=== PATIENT | female | born 1950 | race Caucasian/White ===

== ENCOUNTER → 2021-12-03 14:26 | Outpatient (CLI) | payer MEDICARE, SELFPAY ==
--- NOTE | ~2021-12-03 | XR_ITS ---
XR knee LT 3V 12/03/2021 14:45 Indication: Left knee pain Procedure: 3 views left knee Comparison: No prior studies for comparison. Findings: No fracture, subluxation or dislocation. No significant soft tissue abnormality. No foreign body. There is mild osteoarthritis. Impression: 1: Mild osteoarthritis of the left knee. Reviewed, dictated and finalized at location B. Impression: 1: Mild osteoarthritis of the left knee.
== END ==
PROVIDERS: PCP Family Medicine; Visit Provider Family Medicine
DX: M17.12 Unilateral primary osteoarthritis, left knee (principal)
CPT/HCPCS: 73562

== ENCOUNTER → 2022-02-12 13:57 | Outpatient (CLI) | payer MEDICARE, SELFPAY ==
--- NOTE | ~2022-02-12 | XR_ITS ---
EXAMINATION: XR chest 2V 02/12/2022 14:21 INDICATION: Unspecified lower respiratory infection PROCEDURE: 2 view chest COMPARISON: No prior studies for comparison. FINDINGS: The lungs are clear. The cardiomediastinal silhouette is within normal limits. There are no pleural effusions. There is no pneumothorax suspected. There are median sternotomy wires. There is a prosthetic heart valve. IMPRESSION: 1: NO ACUTE CARDIOPULMONARY DISEASE. Reviewed, dictated and finalized at location A.
== END ==
PROVIDERS: PCP Family Medicine; Visit Provider Physician Assistant
DX: J22 Unspecified acute lower respiratory infection (principal)
CPT/HCPCS: 71046

== ENCOUNTER → 2022-12-09 14:12 | Outpatient (CLI) | payer MEDICARE, SELFPAY ==
--- NOTE | ~2022-12-09 | XR_ITS ---
EXAM: XR sternum min 2V DATE: 12/09/2022 14:29 HISTORY: chest pain;mid sternal chest pain s/p lifting heavy object . COMPARISON: None available. FINDINGS: Intact sternotomy wires. Cardiac valve replacement. No osseous fracture or dislocation. IMPRESSION: No acute osseous finding in the sternum. Reviewed, dictated and finalized at location K.
--- NOTE | ~2022-12-09 | XR_ITS ---
EXAMINATION: XR chest 2V Exam Date/Time: 12/09/2022 14:16 CDT HISTORY: R07.89 - Other chest pain;hx of HTN, parkinson, non smoker Comparison: 02/12/2022. RESULT: Lines, tubes, and devices: Intact sternotomy wires. Cardiac valve replacement. Lungs and pleura: Mild senescent change, otherwise clear. Cardiomediastinal silhouette: Stable. Other: No acute osseous or upper abdominal finding. IMPRESSION: No acute cardiopulmonary process. Reviewed, dictated and finalized at location K.
== END ==
PROVIDERS: PCP Family Medicine; Visit Provider Physician Assistant
DX: R07.89 Other chest pain (principal)
CPT/HCPCS: 71046; 71120

== ENCOUNTER → 2023-03-10 12:51 | Outpatient (CLI) | payer MEDICARE, SELFPAY ==
--- NOTE | ~2023-03-10 | XR_ITS ---
XR shoulder RT min 2V 03/10/2023 13:11 Indication: Right shoulder pain Procedure: 5 views right shoulder Comparison: No prior studies for comparison. Findings: No fracture, subluxation or dislocation. There is anatomic alignment. No significant joint space narrowing. Status post median sternotomy for CABG. Impression: 1: No significant bone or joint abnormality. Reviewed, dictated and finalized at location L. Impression: 1: No significant bone or joint abnormality.
== END ==
PROVIDERS: PCP Family Medicine; Visit Provider Physician Assistant Medical
DX: M25.511 Pain in right shoulder (principal)
CPT/HCPCS: 73030

== ENCOUNTER 2023-12-18 11:41 | Outpatient (CLI) | payer MEDICARE, SELFPAY ==
--- NOTE | ~2023-12-18 | XR_ITS ---
XR lumbar spine 2-3V 12/18/2023 12:55 Indication: Sciatica Procedure: 4 views of the lumbar spine Comparison: No prior studies for comparison. Findings: Vertebral body heights are maintained. There is disc narrowing at all lumbar levels. No fra cture, subluxation or dislocation. There is facet hypertrophy at L4-5 and L5-S1. No evidence for spon dylolisthesis. Mild levoscoliosis. There are cholecystectomy clips. Impression: 1: Severe lumbar spondylosis. Reviewed, dictated and finalized at location B. Impression: 1: Severe lumbar spondylosis.
== END 2023-12-18 11:42 ==
PROVIDERS: PCP Family Medicine; Visit Provider Physician Assistant Medical
DX: M43.06 Spondylolysis, lumbar region (principal); M54.30 Sciatica, unspecified side
CPT/HCPCS: 72100

== ENCOUNTER 2024-10-04 08:30 | Outpatient (CLI) | payer MEDICARE, SELFPAY ==
--- NOTE | ~2024-10-04 | XR_ITS ---
EXAMINATION: XR shoulder LT min 2V DATE: 10/04/2024 08:50 INDICATION: Left rotator cuff tear or rupture. TECHNIQUE: AP internally and externally rotated, AP oblique externally rotated and transscapular Y vi ews of the left shoulder were obtained. COMPARISON: None FINDINGS: Normal alignment. No fracture. The acromion undersurface is curved in morphology (type II) with smal l anterior subacromial spur. Mild glenohumeral osteoarthritis. Moderate acromioclavicular osteoarthri tis. Visualized portions of the mid to upper lungs are clear. Median sternotomy wires and mediastinal surgical clips are seen, likely from prior coronary artery bypass grafting. Soft tissues are unremar kable. IMPRESSION: Mild left glenohumeral and moderate acromioclavicular osteoarthritis. Reviewed, dictated and finalized at location B.
--- NOTE | ~2024-10-04 | XR_ITS ---
EXAMINATION: XR shoulder RT min 2V DATE: 10/04/2024 08:50 INDICATION: Right shoulder pain TECHNIQUE: AP internally and externally rotated, AP oblique externally rotated and transscapular Y vi ews of the right shoulder were obtained. COMPARISON: None FINDINGS: Normal alignment. No fracture.The acromion undersurface is curved in morphology (type II) small ante rior subacromial spur. Mild glenohumeral and moderate acromioclavicular osteoarthritis. Visualized up per lungs are clear. Median sternotomy wires and mediastinal surgical clips are seen, likely from tisha or coronary artery bypass grafting. Soft tissues are unremarkable. IMPRESSION: Likely humeral and moderate acromioclavicular osteoarthritis. Reviewed, dictated and finalized at location B. EL SUPERVISOR
== END 2024-10-04 08:31 | disposition home or self-care (01) ==
PROVIDERS: PCP Family Medicine; Visit Provider Orthopaedic Surgery
DX: M75.102 Unspecified rotator cuff tear or rupture of left shoulder, not specified as traumatic (principal); M12.812 Other specific arthropathies, not elsewhere classified, left shoulder
CPT/HCPCS: 73030

== ENCOUNTER 2024-12-30 09:57 | Outpatient (CLI) | payer MEDICARE, SELFPAY ==
--- NOTE | ~2024-12-30 | MR_ITS ---
MRI of the left shoulder Technique: Axial proton-density fat-sat images, coronal proton density fat-sat and T2 fat-sat images, and sagittal T1-weighted and T2 fat-sat images were acquired. Clinical History: Rotator cuff tear Findings: There is minimal AC joint degenerative change. Coracoclavicular, coracoacromial, and coraco humeral ligaments appear intact. There is full-thickness tearing at the anterior, distal supraspinatus tendon insertion, region measur ing 1.1 x 0.8 cm in extent. There is moderate to advanced supraspinatus and infraspinatus tendinosis. Subscapularis tendon is intact. Tendon of the long head of the biceps is intact. No labral tear evident. There is prominent fluid distention of the subacromial/subdeltoid bursa. Inferior glenohumeral joint is intact. No degenerative change or effusion of the glenohumeral joint. No muscle atrophy or edema. Impression: 1.1 x 0.7 cm full-thickness tear at the anterior, distal supraspinatus tendon insertion. Background r otator cuff tendinosis. Subacromial/subdeltoid bursitis. Reviewed, dictated and finalized at location . Impression: 1.1 x 0.7 cm full-thickness tear at the anterior, distal supraspinatus tendon i nsertion. Background rotator cuff tendinosis. Subacromial/subdeltoid bursitis.
--- NOTE | ~2024-12-30 | MR_ITS ---
MRI of the right shoulder Technique: Axial proton-density fat-sat images, coronal proton density fat-sat and T2 fat-sat images, and sagittal T1-weighted and T2 fat-sat images were acquired. Clinical History: Rotator cuff tear Findings: There is minimal AC joint degenerative change. Coracoclavicular, coracoacromial, and coraco humeral ligaments are intact. There is severe supraspinatus and infraspinatus tendinosis, without partial or full-thickness tear ev ident. Subscapularis tendon is intact, with mild tendinosis. Tendon of long head of the biceps is int act. No definite labral tear seen. Inferior glenohumeral ligament is intact. There is probable fluid distention of the subacromial/subde ltoid bursa. No glenohumeral joint effusion. No muscle/edema. Impression: Subacromial/subdeltoid bursitis. Severe rotator cuff tendinosis, as detailed above. Reviewed, dictated and finalized at [facility]. Impression: Subacromial/subdeltoid bursitis. Severe rotator cuff tendinosis, as detailed above.
== END 2024-12-30 09:58 | disposition home or self-care (01) ==
PROVIDERS: PCP Family Medicine; Visit Provider Orthopaedic Surgery
DX: M75.52 Bursitis of left shoulder (principal); M75.101 Unspecified rotator cuff tear or rupture of right shoulder, not specified as traumatic; M75.102 Unspecified rotator cuff tear or rupture of left shoulder, not specified as traumatic
CPT/HCPCS: 73221

== ENCOUNTER 2025-03-31 09:53 | Outpatient (CLI) | payer MEDICARE, SELFPAY ==
--- OUTSIDE RECORDS SUMMARY | 2025-03-31 10:02 | XMS_ITS | Clinical Summary ---
Author Organization [facility] Address [address] [place] [address] Care Team Providers Care Zoning Engineer Name Role Phone Ileana Herrera MD Primary Care Provider [phone] Allergies Active Allergy Reactions Criticality Noted Date Comments Ljnhjpg-Kmt-Uzx Reductase Inhibitors Muscle pain Medium 03/08/2024 Medications acetaminophen (TYLENOL) 325 mg tablet take 1 tablet by oral route every 4 hours as needed 0 0 03/28/2015 Active aspirin 81 mg tablet Take 1 tablet (81 mg total) by mouth daily Active carbidopa-levod opa (SINEMET) 25-100 mg per tablet Take 1 tablet by mouth 3 (three) times a day 10/30/2018 Active traMADol (ULTRAM) 50 mg tablet Take 1 tablet (50 mg total) by mouth every 8 (eight) hours as needed for pain Active coenzyme Q10 10 mg capsule Take 1 capsule (10 mg total) by mouth daily Active cetirizine (ZyrTEC) 10 mg tablet Take 1 tablet (10 mg total) by mouth daily Active atorvastatin (LIPITOR) 10 mg tablet TAKE 1 TABLET BY MOUTH EVERY OTHER DAY 45 tablet 2 02/21/2025 Active Active Problems Problem Noted Date Diagnosed Date LVH (left ventricular hypertrophy) 08/20/2022 Mixed hyperlipidemia 08/07/2021 Statin myopathy 06/11/2020 Parkinson's disease (CMS/HCC) 06/02/2019 Muscle pain 10/19/2017 S/P aortic valve replacement with bioprosthetic valve 07/10/2017 Essential hypertension 07/10/2017 Aortic valve stenosis 03/17/2017 Ascending aortic aneurysm 03/17/2017 Aortic root dilatation 06/04/2016 Overview (12/25/2016): Aortic root dilatation Family history of cardiovascular disease 015 Overview (12/25/2016): Family history of bicuspid aortic valve Dyspnea on exertion 03/28/2015 Overview (12/25/2016): [place]BORNE (dyspnea on exertion) Resolved Problems Problem Noted Date Diagnosed Date Resolved Date Dyslipidemia 03/28/2015 08/07/2021 Overview (12/25/2016): Dyslipidemia Surgical History Surgery Date Site/Laterality Comments FOOT SURGERY 09/21/1972 - 09/20/1973 CHOLECYSTECTOMY 09/21/2006 - 09/20/2007 APPENDECTOMY 09/21/2008 - 09/20/2009 AORTIC VALVE REPLACEMENT 09/21/2016 - 09/20/2017 CATARACT EXTRACTION, BILATERAL 01/19/2023 - 02/18/2023 Bi lateral Medical History Medical History Date Comments Hypertension Aortic stenosis Hyperlipidemia Aortic aneurysm Family History Medical History Relation Name Comments Colon cancer Father Cancer, colon; Dementia Mother Dementia; Relation Name Status Comments Father Mother Social History Tobacco Use Types Packs/Day Years Used Date Smoking Tobacco: Never Smokeless Tobacco: Never Tobacco Cessation:Counseling Given: Not Answered Alcohol Use Standard Drinks/Week Comments Yes 0 (1 standard drink = 0.6 oz pur e alcohol) Comments Unknown Sex and Gender Information Value Date Recorded Sex Assigned at Not on file Legal Sex Female 2:09 PM CDT Gender Identity Not on file Sexual Orientation Not on file Obstetrics History Last Filed Vital Signs Vital Sign Reading Time Taken Comments Blood Pressure 134/84 10/25/2024 2:25 PM DIRECTOR OF FOOD AND BEVERAGE SERVICES Pulse 82 10/25/2024 2:25 PM DIRECTOR OF FOOD AND BEVERAGE SERVICES Temperature 36.7 C (98 F) 08/21/2020 12:03 PM DIRECTOR OF FOOD AND BEVERAGE SERVICES Respiratory Rate 16 08/30/2024 10:43 AM DIRECTOR OF FOOD AND BEVERAGE SERVICES Oxygen Saturation 98% 10/25/2024 2:25 PM DIRECTOR OF FOOD AND BEVERAGE SERVICES Inhaled Oxygen Concentration - - Weight 82.1 kg (181 lb) 10/25/2024 2:25 PM DIRECTOR OF FOOD AND BEVERAGE SERVICES Height 172.7 cm (5' 8) 10/25/2024 2:25 PM DIRECTOR OF FOOD AND BEVERAGE SERVICES Body Mass Index 27.52 10/25/2024 2:25 PM DIRECTOR OF FOOD AND BEVERAGE SERVICES Plan of Treatment Health Maintenance Due Date Last Done Comments Colon Cancer Screening-Colonoscopy 1950 Depression Screening 1950 Fall Risk Assessment 1950 Hepatitis C Screening 1950 Osteoporosis Screening-Bone Density Scan 1949 Hepatitis B Screening 1967 Pneumococcal vaccine 65+ (1 of 1 - PCV) 1999 Zoster Vaccine (1 of 2) 1999 Well Visit 65+ 2014 DTaP/Tdap/Td Vaccine (2 - Td or Tdap) 03/14/2023 Influenza Vaccine (#1) 2025 06/24/2018 Insurance AETNA MEDICARE [facility] MEDICARE AET MEDICARE [facility] MED[facility] Address: [address] [place] [address] Care Teams Zoning Engineer Relationship Specialty Start Date End Date Ileana Herrera MD PCP - General Family Medicine 08/07/21
--- OUTSIDE RECORDS SUMMARY | 2025-03-31 10:02 | XMS_ITS | Referral Summary ---
Author Organization [facility] Address [address] [place] [id number] Care Team Providers Care Fire Management Officer Name Role Phone Ileana Herrera MD Primary Care Provider [phone] Allergies Active Allergy Reactions Criticality Noted Date Comments Khrqjim-Xuv-Gai Reductase Inhibitors Muscle pain Medium 03/08/2024 Medications [...] Date Dyslipidemia 03/28/2015 08/07/2021 Overview (12/25/2016): Dyslipidemia Social History Tobacco Use Types Packs/Day Years [...] on file Sexual Orientation Not on file Last Filed Vital Signs Vital Sign Reading Time Taken Comments Blood Pressure 134/84 10/25/2024 2:25 PM HAND DRAWER IN Pulse 82 10/25/2024 2:25 PM HAND DRAWER IN Temperature 36.7 C (98 F) 08/21/2020 12:03 PM HAND DRAWER IN Respiratory Rate 16 08/30/2024 10:43 AM HAND DRAWER IN Oxygen Saturation 98% 10/25/2024 2:25 PM HAND DRAWER IN Inhaled Oxygen Concentration - - Weight 82.1 kg (181 lb) 10/25/2024 2:25 PM HAND DRAWER IN Height 172.7 cm (5' 8) 10/25/2024 2:25 PM HAND DRAWER IN Body Mass Index 27.52 10/25/2024 2:25 PM HAND DRAWER IN Plan of Treatment Not on file Insurance AETNA MEDICARE MEDICARE MEDICARE Care Teams Fire Management Officer Relationship Specialty Start Date End Date Ileana Herrera MD PCP - General Family Medicine 08/07/21
--- OUTSIDE RECORDS SUMMARY | 2025-03-31 10:02 | XMS_ITS | Encounter Summary ---
Author Organization [facility] Address [address] [facility] [address] [place] [address] Care Team Providers Care Warehouse Specialist Name Role Phone Mikhail Weeks DO Primary Care Provider + [phone] Mikhail Weeks DO Primary Care Provider + [phone] Desirae Yeboah MD Primary Care Provider + [phone] Gilberto Hall Primary Care Provider [phone] Ileana Herrera MD Primary Care Provider [phone] Encounter Details Date Type Department Care Team (Late st Contact Info) Description 12/01/2016 Orders Only [facility] ProviderMay MD [address] [place] [id number] Social History Tobacco Use Types Packs/Day Years Used Date Smoking Tobacco: Never Assessed Comments Unknown Sex and Gender Information Value Date Recorded Sex Assigned at Not on file Legal Sex Female 2:09 PM CDT Gender Identity Not on file Sexual Orientation Not on file documented as of this encounter Plan of Treatment Not on file documented as of this encounter Procedures Procedure Name Priority Date/Time Associated Diagnosis Comments CARDIOLOGY REPORT 12/01/2016 documented in this encounter Results * CARDIOLOGY REPORT (12/01/2016) Anatomical Region Laterality Modality Other Narrative 12/01/2016 Ordered by an unspecified provider. Historical Provider [facility] NETTA BREWER Final Result documented in this encounter Visit Diagnoses Not on filedocumented in this encounter Care Teams Warehouse Specialist Relationship Specialty Start Date End Date Mikhail Weeks DO PCP - General 12/19/16 04/04/18 Mikhail Weeks DO PCP - General 03/26/16 12/18/16 Desirae Yeboah MD PCP - General Family Practice 04/05/18 01/31/21 Gilberto Hall PA [address] [place] [address] PCP - General Physician Garbage Pick Up Worker 02/01/21 08/06/21 Ileana Herrera MD [address] [place] [address] PCP - General Family Medicine 08/07/21 documented as of this encounter
--- NOTE | 2025-03-31 10:15 | ECG_ITS ---
Test Date: 2025-03-31 10:20:19 Measurements Intervals [place] Rate: 67 P: -52 NV: 123 QRS: -41 QRSD: 107 T: -16 QT: 384 QTc: 408 Interpretive Statements ECTOPIC ATRIAL RHYTHM WITH OCCASIONAL SUPRAVENTRICULAR PREMATURE COMPLEXES LEFTWARD AXIS PATTERN CONSISTENT WITH PULMONARY DISEASE INCOMPLETE RIGHT BUNDLE BRANCH BLOCK Electronically Signed On 03-31-2025 11:09:26 CDT by Chandrakant Davis D.O
== END 2025-03-31 09:54 | disposition home or self-care (01) ==
LOC: ANHSURGERY 09:59
PROVIDERS: PCP Family Medicine; Visit Provider Orthopaedic Surgery
DX: E78.5 Hyperlipidemia, unspecified (principal); I45.10 Unspecified right bundle-branch block
CPT/HCPCS: 93005

== ENCOUNTER 2025-04-07 00:20 | Day surgery (SDC) | payer MEDICARE, SELFPAY ==
[2025-03-30 10:57] VITALS: BMI 26.4
--- NOTE | 2025-03-30 11:19 | PC.NURSE ---
Report to the Outpatient Waiting Room, entrance under the green pavilion located off [facility], at time ___10:00AM___ on date ___04/07/25___. Planned Procedure Time: ____12:00PM___.? Time changes happen often and if your time is changed the preop area will call you the afternoon before. - You and your visitor will be asked to self-screen and do not enter if you have any COVID symptoms. Please call surgeon if you need to reschedule. - A mask is optional within the hospital at this time. Patients may have clear liquids (water, carbonated beverages, clear teas, apple juice) until 3 hours prior to surgery (9:00AM) with a maximum of 20 ounces. - No food from midnight until time of surgery and no smoking, or chewing tobacco (or any form of nicotine). No chewing gum, candy or mints. Take only the following medications with a SIP of water on the morning of surgery: ___CARBIDOPA-LEVODOPA. MAY TAKE TRAMADOL NEEDED FOR PAIN. DO NOT STOP ANY OF YOUR OTHER PRESCRIPTION MEDICATIONS PRIOR TO SURGERY EXCEPT THE FOLLOWING Hold all vitamins and supplements for 3 days per anesthesiologist.- LAST DOSE 04/03/25. Medications to discontinue per physician ___HOLD ASPIRIN (EXCEDRIN) AND ALL NSAIDS 7 DAYS PRE-OP PER DR ROCHA Date to take last dose 03/30/25 Please no make-up, nail canadian, hairspray, perfume, deodorant, or body powder the day of surgery.? No jewelry (including any body piercings) or valuables the day of surgery, leave them at home.? Please take a shower or bath the night before, or the morning of, surgery with an antibacterial soap.? Wear comfortable, loose fitting clothing.? - Jewelry must be removed prior to entering the operating room.? Rings and piercings that are not removed may be cut off. - The hospital will not accept responsibility for valuables.? - Please leave all valuables, including medications, at home the day of surgery. If you are going home after surgery, a licensed frontload driver must drive you home.? - NO public transportation without another adult if you receive anesthesia. - We recommend that an adult stay with you for 24 hours following discharge. - We also recommend that you do not drive, make important decision, drink alcoholic beverages, or take any drugs that were not prescribed by your health care provider for at least 24 hours after your discharge time. Follow any additional instructions given to you from your surgeon. Telephone instructions given to ____PATIENT and asked if any additional questions and then verbalized understanding. Patient advised to call surgeon office or pre surgery nurse liaison [phone] if any additional questions.
[2025-04-07] VITALS (8 sets, daily range): BP systolic 106–140; BP diastolic 57–77; PULSE 69–86; RESP 12–18; TEMP 36.3–37.2; O2SAT 97–100; BMI 26.2
--- OUTSIDE RECORDS SUMMARY | 2025-04-07 00:22 | XMS_ITS | Referral Summary ---
Author Organization [facility] Address [address] [place] [id number] Care Team Providers Care Jammer Operator Name Role Phone Ileana Herrera MD Primary Care Provider [phone] Allergies Active Allergy Reactions Criticality Noted Date Comments Gbfcmaj-Fit-Jex Reductase Inhibitors Muscle pain Medium 03/08/2024 Medications [...] Comments Blood Pressure 134/84 10/25/2024 2:25 PM FOOD PRODUCTION ASSOCIATE Pulse 82 10/25/2024 2:25 PM FOOD PRODUCTION ASSOCIATE Temperature 36.7 C (98 F) 08/21/2020 12:03 PM FOOD PRODUCTION ASSOCIATE Respiratory Rate 16 08/30/2024 10:43 AM FOOD PRODUCTION ASSOCIATE Oxygen Saturation 98% 10/25/2024 2:25 PM FOOD PRODUCTION ASSOCIATE Inhaled Oxygen Concentration - - Weight 82.1 kg (181 lb) 10/25/2024 2:25 PM FOOD PRODUCTION ASSOCIATE Height 172.7 cm (5' 8) 10/25/2024 2:25 PM FOOD PRODUCTION ASSOCIATE Body Mass Index 27.52 10/25/2024 2:25 PM FOOD PRODUCTION ASSOCIATE Plan of Treatment Not on file Insurance AETNA MEDICARE MEDICARE MEDICARE Care Teams Jammer Operator Relationship Specialty Start Date End Date Ileana Herrera MD PCP - General Family Medicine 08/07/21
--- OUTSIDE RECORDS SUMMARY | 2025-04-07 00:22 | XMS_ITS | Clinical Summary ---
Author Organization [facility] Address [address] [place] [address] Care Team Providers Care Fire Prevention Bureau Captain Name Role Phone Ileana Herrera MD Primary Care Provider [phone] Allergies Active Allergy Reactions Criticality Noted Date Comments Vtygdha-Lub-Euv Reductase Inhibitors Muscle pain Medium 03/08/2024 Medications [...] Comments Blood Pressure 134/84 10/25/2024 2:25 PM COMMUNITY HEALTH NURSE Pulse 82 10/25/2024 2:25 PM COMMUNITY HEALTH NURSE Temperature 36.7 C (98 F) 08/21/2020 12:03 PM COMMUNITY HEALTH NURSE Respiratory Rate 16 08/30/2024 10:43 AM COMMUNITY HEALTH NURSE Oxygen Saturation 98% 10/25/2024 2:25 PM COMMUNITY HEALTH NURSE Inhaled Oxygen Concentration - - Weight 82.1 kg (181 lb) 10/25/2024 2:25 PM COMMUNITY HEALTH NURSE Height 172.7 cm (5' 8) 10/25/2024 2:25 PM COMMUNITY HEALTH NURSE Body Mass Index 27.52 10/25/2024 2:25 PM COMMUNITY HEALTH NURSE Plan of Treatment Health Maintenance Due Date [...] Vaccine (#1) 2025 06/24/2018 Insurance AETNA MEDICARE [facility] MEDICARE AET MEDICARE Care Teams Fire Prevention Bureau Captain Relationship Specialty Start Date End Date Ileana Herrera MD PCP - General Family Medicine 08/07/21
--- OUTSIDE RECORDS SUMMARY | 2025-04-07 00:22 | XMS_ITS | Clinical Summary ---
Author Organization [facility] Address [facility] [place] [address] Care Team Providers Care Cap And Stud Machine Operator Name Role Phone Ileana Herrera MD Primary Care Provider [phone] Allergies No known active allergies Medications atorvastatin (LIPITOR) 10 MG tablet Take 1 tablet (10 mg total) by mouth every other day. Active carbidopa-levodo pa (SINEMET) 25-250 MG tablet Take 1 tablet by mouth 3 (three) times daily. Active coenzyme Q-10 (CO Q-10) 150 MG capsule Take 100 mg by mouth 2 (two) times a day. Active cetirizine (ZYRTEC) 5 MG tablet Take 1 tablet (5 mg total) by mouth daily. Active traMADol (ULTRAM) 50 MG tablet Take 1 tablet (50 mg total) by mouth every 6 (six) hours as needed for Pain. Active Active Problems No known active problems Social History Tobacco Use Types Packs/Day Years Used Date Smoking Tobacco: Never Smokeless Tobacco: Never Tobacco Cessation:Counseling Given: Not Answered Comments Unknown Sex and Gender Information Value Date Recorded Sex Assigned at Not on file Legal Sex Female 6:26 PM CDT Gender Identity Not on file Sexual Orientation Not on file Last Filed Vital Signs Vital Sign Reading Time Taken Comments Blood Pressure 117/58 02/09/2023 10:25 AM CDT Pulse 75 02/09/2023 10:22 AM CDT Temperature 36.4 C (97.5 F) 02/09/2023 9:07 AM CDT Respiratory Rate 18 02/09/2023 10:22 AM CDT Oxygen Saturation 96% 02/09/2023 10:22 AM CDT Inhaled Oxygen Concentration - - Weight 86.2 kg (190 lb) 02/03/2023 11:59 AM CDT Height 172.7 cm (5' 8) 02/03/2023 11:59 AM CDT Body Mass Index 28.89 02/03/2023 11:59 AM CDT Plan of Treatment Health Maintenance Due Date Last Done Comments Colorectal Cancer Screening Colonoscopy (10 Years) 1949 Hepatitis C 1967 Zoster Vaccines (1 of 2) 1999 Annual Medicare Wellness Visit 2014 Dexa Scan (General) 2014 Pneumococcal Vaccine: 50+ Years (2 of 2 - PPSV23) 09/07/2021 09/07/2020 DTaP, Tdap and Td Vaccines (2 - Td or Tdap) 03/14/2023 03/14/2013 COVID-19 Vaccine ( season) 2024 02/27/2022, 07/18/2021, 12/09/2020, Additional history exists RSV Immunization or 60+ Years (1 - 1-dose 75+ series) 2024 Meningococcal B Vaccine Aged Out No l onger eligible based on patient's age to complete this topic Meningococcal Vaccine Aged Out No jasmine kiki eligible based on patient's age to complete this topic RSV Immunizations Under 20 Months Aged Out No longer eligible based on patient's age to complete this topic Medical Devices Implanted Type Area Hand Former Device Identifier Shelf Expiration Date Model / Serial / Lot Tecnis 1 Piece Iol With Tecnis Simplicity Delivery System Implanted:Qty: 1 on 02/09/2023 by Eliel Golden MD at [facility] 04/30/2025 / [id number] / Insurance AETNA Care Teams Cap And Stud Machine Operator Relationship Specialty Start Date End Date Ileana Herrera MD [address] [place] [address] PCP - General FAMILY PRACTICE 02/09/23
--- OUTSIDE RECORDS SUMMARY | 2025-04-07 00:22 | XMS_ITS | Encounter Summary ---
Author Organization [facility] Address [address] [place] [id number] Care Team Providers Care Travel Guide Name Role Phone Mikhail Weeks DO Primary Care Provider + [phone] Mikhail Weeks DO Primary Care Provider + [phone] Desirae Yeboah MD Primary Care Provider + [phone] Gilberto Hall Primary Care Provider [phone] Ileana Herrera MD Primary Care Provider [phone] Encounter Details Date Type Department Care Team (Late st Contact Info) Description 12/01/2016 Orders Only [facility] ProviderMay MD [address] [place] [id number] Social History Tobacco Use Types Packs/Day Years [...] on filedocumented in this encounter Care Teams Travel Guide Relationship Specialty Start Date End Date Mikhail Weeks DO PCP - General 12/19/16 04/04/18 Mikhail Weeks DO PCP - General 03/26/16 12/18/16 Desirae Yeboah MD PCP - General Family Practice 04/05/18 01/31/21 Gilberto Hall PA [address] [place] [address] PCP - General Physician System Archive Analyst 02/01/21 08/06/21 Ileana Herrera MD [address] [place] [address] PCP - General Family Medicine 08/07/21 documented as of this encounter
--- NOTE | 2025-04-07 08:43 | P.PNAN_ITS ---
Anes - Initial Pre Proc Eval Procedure: Operation Date: 04/07/25 12:00 Proposed Procedures p Left Arthroscopic Rotator Cuff Repair with Subacromial Decompression - Azael Craft MD Date/Time: 04/07/25 08:43 Surgeon: Azael Craft MD Pre Op Diagnosis: Complete Rot Cuff Tear Lt Shoulder Patient Data Age: 74 Gender: F Height: 1.73 m Weight: 79 kg Allergies Allergy/AdvReac Type Severity Reaction Status Date / Time No Known Allergies Allergy Verified 04/07/25 11:05 Home Medications ?Medication ?Instructions ?Recorded ?Confirmed ?Type acetaminophen 500 mg tablet 1,000 mg PO Q6H PRN pain 04/17/20 03/30/25 History (Tylenol Extra Strength) atorvastatin 10 mg tablet 10 mg PO .qod 02/12/22 03/30/25 History coenzyme Q10 75 mg capsule (Ultra 75 mg PO BID 02/12/22 03/30/25 History CoQ10) icergsm-edtvhksnguijn-iqwpmkjh 250 1 tablet PO Q4-6H PRN pain 08/22/22 03/30/25 History mg-250 mg-65 mg tablet (Excedrin Migraine) cetirizine 10 mg capsule (Zyrtec) 10 mg PO DAILY PRN allergy symptoms 08/22/22 03/30/25 History tramadol 50 mg tablet 50 mg PO Q8H PRN pain #90 tabs 01/12/25 03/30/25 Rx carbidopa 25 mg-levodopa 250 mg See Rx Instructions .Route TID 02/02/25 03/30/25 Rx tablet #270 tabs carbidopa ER 50 mg-levodopa 200 mg 1 tablet PO QHS #90 tabs 02/02/25 03/30/25 Rx tablet,extended release cholecalciferol (vitamin D3) 25 50 mcg PO BID 03/30/25 03/30/25 History mcg (1,000 unit) capsule Patient hx anesthesia problems: none Family hx anesthesia problems: none Results Review: All pre-operative results and documents have been reviewed as part of the pre- operative evaluation. 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, thoracic region (09/17/18) Tremor Parkinson disease Surgical History Surgical History History of tubal ligation Aortic valve replaced History of cholecystectomy History of appendectomy Family History Family History Mother Family history of thyroid disease Hypertension Dementia Father Family history of cardiovascular disease Heart disease Social History Social History Smoking status: Never smoker Second hand tobacco smoke exposure: No Alcohol intake: current Alcohol use details: Occasional Substance use: never Substance use type: does not use Do You Feel Safe in your Home?: Yes Lack of Transportation: No Lack of Food: Never True Current Housing: I Have Housing Concerned About Future Housing: No Difficulty Paying Gas/Electric Bills: No Difficulty Paying for Meds: No Currently Unemployed: No Education: Decline to Answer Difficulty w/ Childcare or Family Care: No Living arrangements: with family Additional living arrangements comments: [place] Occupation/Education: retired Additional occupation/education comments: [employer] Gender identity (if verbalized by the patient): Female Sexual Orientation (if Verbalized by the Patient): Straight or Heterosexual Spiritual care concerns: No Agree to blood products: Yes Anes - Eval Final PreProcedure Day of Procedure 04/07/25 08:43 Patient weight: overweight Heart: regular rate and rhythm Lungs: clear to auscultation Airway: Mallampati scale class II Neurological: alert and oriented Last oral intake: >/= 8 hours ASA classification: III Emergent: no Anesthetic plan: proceed Anesthesia type and monitoring: general ETT and standard monitoring Results Review: All pre-operative results and documents have been reviewed as part of the pre- operative evaluation. Informed Consent: The patient's anesthetic plan and its attendant risks and benefits were discussed with the patient/family/POA. Questions were solicited and answers provided to the satisfaction of the patient/family/POA.
[2025-04-07] MEDS: LACTATED RINGERS 1,000 ML 30 ML IV CONT ×2 (10:30→14:09)
[2025-04-07] MEDS: ACETAMINOPHEN 500 MG TABLET 1000 MG PO (11:02)
[2025-04-07] MEDS: KETOROLAC 15 MG/ML VIAL (*BKC) IV PUSH (11:02)
--- NOTE | 2025-04-07 11:07 | WPDANESPNB ---
Anes - Peripheral Nerve Block Date/Time: 04/07/25 11:07 I have discussed with the patient/family/POA the placement of a peripheral nerve block for post-operative pain management, including associated risks, benefits, complications, and side effects. Alternative methods of post-operative analgesia were detailed. Questions were solicited and answers provided to the satisfaction of the patient/family/POA. Time-Out: A pre-procedural Time-Out was completed immediately before starting the procedure and confirmed: Patient Identification, Site, Procedure, Patient Position and the Availability of Requisite Equipment. Clinical Indications: Acute post-operative pain management requested by the operative surgeon. Nerve Block Insertion Note Anes-nerve block: interscalene left Patient position: supine Skin prep: chlorhexidine Needle: 22 gauge, stimulating, insulated echogenic needle. Needle length: 50 mm Technique: ultrasound Injectate: bupivacaine 0.5% with epi 5 mcg/ml (20cc- no epi) Observations: tolerated well Complications: none Procedure start time:: 1211 Procedure end time:: 1213
--- NOTE | 2025-04-07 12:04 | WPDHPUPDATE1 ---
History and Physical Update Update Date/Time: 04/07/25 12:04 History and Physical has been reviewed, including an updated exam of the patient. There are NO changes in the patient's condition. Risks, benefits, and alternatives have been discussed and questions answered. Patient agrees to proceed with procedure.
[2025-04-07] MEDS: ceFAZolin 2 GM in SODIUM CHLORIDE 0.9% IV 50 ML 100 ML IVPB (12:23)
[2025-04-07] MEDS: EPINEPHrine HCL INJ 1 MG/ML AMPUL 3 MG IRRIGATION (12:23)
--- NOTE | 2025-04-07 14:02 | W.PM.PROC2 ---
Procedure Note - Detailed Date of Procedure 04/07/25 Pre-op Diagnosis Complete Rot Cuff Tear Lt Shoulder Post-op Diagnosis Other (1. Rotator cuff tear 2. Subacromial impingement ) Procedure Performed Left shoulder 1. Arthroscopic rotator cuff repair 2. Arthroscopic subacromial decompression Surgeon Azael Craft MD Anesthesia General and Regional ( interscalene block) Findings Delaminated medium sized tear. Medial bursal side tendon thinning. The lateral tissue appeared as a simple crescent tear, however there was discontinuity between this lateral tendinous tissue, and more medial tendon. The repair was successful at incorporating both areas of tearing into a two tunnel, 6 suture, rip-stop configuration. A prominent type 3 acromion was treated with acromioplasty using the arthroscopic bur. The glenohumeral joint was otherwise benign. Description of Procedure Preoperative antibiotics were given. An interscalene block was administered in the preoperative area. The patient was bought brought to the operating room. A general anesthetic was administered. The patient was carefully positioned in the beach chair position. The head and neck were carefully positioned. The non operative extremity was also carefully positioned. The shoulder was prepped and draped in the usual sterile fashion. Examination was performed. Standard posterior and anterior arthroscopic portals were established. Inflow achieved with the arthroscopic pump using saline and epinephrine. The glenohumeral joint was carefully inspected. No significant arthritis present. The biceps appeared normal. The supraspinatus tear appeared to have high grade tearing and attenuation. Attention was turned to the subacromial space. A complete bursectomy was performed. The prominent type 3 subacromial spur was resected with the arthroscopic bur. The tear configuration was carefully assessed. The medium sized crescent type I tear was observed. However, there was delamination and discontinuity with the more medial tissue. The lateral tissue was robust, therefore not excised. At this point, 2 tunnels were created at the rotator cuff. Three sutures were passed through each tunnel. All sutures were then passed through the cuff tissue. The second and fifth sutures were tied in a rip-stop. The sutures were tied arthroscopically. The arthroscopic instruments were removed. The wounds were closed with 3-0 Monocryl subcuticular suture and steri strips. There were no complications. A sling was applied and the patient brought to the recovery room. Estimated Blood Loss 20 Pathology None sent Complications No immediate complications Condition Stable Disposition PACU [facility] Billing Surgery - Charge Forward: Surgery Billing
== END 2025-04-07 16:05 | disposition home or self-care (01) ==
PROVIDERS: PCP Family Medicine; Visit Provider Orthopaedic Surgery
PROC: (CPT 29805; principal; 2025-04-07 12:00)
DX: M75.102 Unspecified rotator cuff tear or rupture of left shoulder, not specified as traumatic (principal); M75.42 Impingement syndrome of left shoulder; G89.18 Other acute postprocedural pain
CPT/HCPCS: 29827; 29826; 64415; J0690; A4565; A9270; J0166; J1100; J1885; J2405; J2704; J3010; J7120

== ENCOUNTER 2025-07-14 10:29 | Outpatient (CLI) | payer MEDICARE, SELFPAY ==
--- NOTE | ~2025-07-14 | XR_ITS ---
EXAMINATION: XR hip LT 2V w AP pelvis, 07/14/2025 10:34 CDT HISTORY: M25.559 - Pain in unspecified hip COMPARISON: No comparisons available. Findings: No acute fracture or malalignment. No significant degenerative changes. Soft tissues unremarkable. Impression: No acute fracture or malalignment. Reviewed, dictated and finalized at location P. Impression: No acute fracture or malalignment.
== END 2025-07-14 10:30 | disposition home or self-care (01) ==
LOC: MICIMG 10:31
DX: M25.552 Pain in left hip (principal)
CPT/HCPCS: 73502